=== PATIENT | female | born 1965 | race Caucasian/White ===

== ENCOUNTER → 2017-07-30 10:38 | Outpatient (CLI) | payer OTHER, SELFPAY | PROVIDERS: Visit Provider Podiatrist | DX: M25.571 Pain in right ankle and joints of right foot (principal) | CPT/HCPCS: 93005 ==

== ENCOUNTER 2017-08-08 07:42 | Day surgery (SDC) | payer OTHER, SELFPAY ==
[2017-08-02 12:57] VITALS: BMI 34.4
[2017-08-08] VITALS (8 sets, daily range): BP systolic 96–140; BP diastolic 64–80; PULSE 77–91; RESP 15–16; TEMP 36.3–37; O2SAT 96–100; BMI 34.4
[2017-08-08] MEDS: SCOPOLAMINE 1 PATCH TOP (07:18)
[2017-08-08] MEDS: LACTATED RINGERS 1,000 ML 42 ML IV (07:21)
--- NOTE | 2017-08-08 08:03 | PM.PREOP ---
Pre-operative Note Interval Note Pre-op Check: History & Physical Reviewed by Physician
[2017-08-08] MEDS: CEFAZOLIN VIAL 2 GM in SODIUM CHLORIDE 0.9% 100 ML 200 ML IV (08:10)
[2017-08-08] MEDS: BUPIVACAINE 0.5% (PF) 30 ML VIAL INJ (09:08)
--- NOTE | 2017-08-08 10:00 | PM.OP.1 ---
Operative Date/Time/Diagnoses - Date of procedure: 08/08/17 Time of procedure: 10:00 Pre-op diagnosis: Right posterior tibial tendinitis and painful accessory navicular bone Post-op diagnosis: same Procedure & Clinicians Procedure: Right modified Kidner procedure Same procedure as scheduled: Yes Indications: Painful right ankle with insertional posterior tibial tendinitis and accessory navicular. Conservative measures failed to alleviate her pain and she wished to have surgical intervention at this time. Surgeon: Erin Roberto Click Yes if Unassisted: No Anesthesia Type: MAC +/- and Sedation Operative Notes Closure Type: primary Specimen(s): none sent Implants & Drains: Arthrex anchor Applied: implant(s) Estimated Blood Loss (mL): 10 Blood products transfused: none Tourniquet time (min): 44 Procedure in detail: Patient was brought to the operating room and placed on the operating table in the supine position tourniquet was placed about the calf. The foot and ankle were prepped and draped in the usual aseptic manner after induction of anesthesia. The tourniquet was inflated and after check of anesthesia and incision was made to the medial midfoot over the prominent medial navicular. The incision was deepened through subcutaneous tissues being careful to identify and retract all vital neural and vascular structures. All bleeders were cauterized and ligated as necessary. The posterior tibial tendon insertion was noted and the window was made within the tendon to allow for access to the accessory navicular. Under the aid of C-arm, the ossicle was verified and removed preserving as much of the tendon as possible. It measured approximately 1.8 cm in diameter. This was passed from the table. The area was irrigated with copious amounts of normal sterile saline. The C-arm was used to approximate the location of the anchor and it was gently tapped and then placed. It appeared to slip into the medial edge of the talonavicular articulation, so this was easily removed and we directed with a different angle to allow for firmer adherence and this went directly into the arm of the navicular without complication. Talonavicular joint in that area on that edge was not entered significantly to note any changes from the anchor which was removed. The anchor was well seated without any prominence and the tendon was then drawn out around it and secured with the 2 attached suture. This was secured firmly and reinforced along the tendon with 3 0 Vicryl. Final C-arm pictures were taken to verify location and adherence and this showed the anchor to be appropriately seated and good strength. The tourniquet was deflated and a prompt hyperemic response was seen to the foot. A deep closure performed using 3 0 Vicryl for Vicryl of to the sub 5th take your tissues and 3 0 nylon to the skin. She was dressed with a lightly compressive dressing and placed in her postoperative boot. She has tried to the PACU with vital signs stable and vascular status intact. Complications: none Condition: stable Disposition: PACU Plan for aftercare: Following a period of postoperative monitoring the patient was discharged home on written and oral postoperative instructions including to keep the dressing dry and intact avoiding ambulation to the foot icing and elevating the foot when seated at home DVT prevention techniques have been reviewed. At her 1st postoperative visit will be a dressing change and around postoperative week 3 we will consider beginning putting a little bit of weight on the foot. Physical therapy will also be considered.
--- NOTE | 2017-08-08 11:10 | SUR.PHASEII ---
assumed care from issa, pt's called, pt's leg elevated on pillows, ice behind knee. returned to unit, d/c instructions discussed with both, both voiced an understanding. pt assisted to br to void, steady when up. pt left when ready and left in stable condition.
== END 2017-08-08 11:01 | disposition home or self-care (01) ==
PROVIDERS: Visit Provider Podiatrist
PROC: (CPT 28238; principal; 2017-08-08 07:45)
DX: M76.821 Posterior tibial tendinitis, right leg (principal); S93.411A Sprain of calcaneofibular ligament of right ankle, initial encounter; Q74.2 Other congenital malformations of lower limb(s), including pelvic girdle; I10 Essential (primary) hypertension
CPT/HCPCS: 28238; J0131; J0690; J1100; J2250; J2405; J2704; J3010